=== PATIENT | male | born 1955 | race African-American/Black ===

== ENCOUNTER 2020-08-13 22:25 | Inpatient (IN) | payer BC ==
[2020-08-13 22:32] VITALS: BMI 32.8
[2020-08-14 00:27] LABS: BASO % 0.8 % (0-2.0); EOS % 2.4 % (0-4.5); HEMATOCRIT 46.8 % (35.4-49); HEMOGLOBIN 15.2 GM/dL (11.7-16.9); LYMPH % 14.9 % (8-40); MCH 30.6 pg (25.7-33.7); MCHC 32.6 g/dl (32.0-35.9); MEAN CELL VOLUME 93.9 fl (80-96); MEAN PLT VOLUME 9.7 fl (7.5-11.1); MONO % 11.8 % (3.8-10.2); NEUT % 70.1 % (42.8-82.8); PLATELET COUNT 185 K/MM3 (134-434); RBC 4.98 M/mm3 (4.00-5.60); RDW 14.2 % (11.9-15.9); WHITE BLOOD COUNT 11.6 K/mm3 (4.0-10.0)
[2020-08-14 00:42] LABS: POTASSIUM 4.7 mmol/L (3.5-5.1)
[2020-08-14 00:44] LABS: BLOOD UREA NITROGEN 35.9 mg/dL (7-18); CALCIUM 9.7 mg/dL (8.5-10.1)
[2020-08-14 00:48] LABS: CREATININE 1.2 mg/dL (0.55-1.3)
[2020-08-14 00:49] LABS: BILIRUBIN,TOTAL 0.5 mg/dL (0.2-1); TOT PROT 7.2 g/dl (6.4-8.2)
[2020-08-14 01:17] LABS: ERYTHROCYTE SEDIMENTATION RATE 8 mm/hr (0-20)
[2020-08-14] MEDS ORDERED: IBUPROFEN 600 MG TABLET (FP) PO ONE ×2 (01:33→02:58)
[2020-08-14] MEDS ORDERED: LIDOCAINE HCL 2% (50ML VIAL) INF ONE (02:15)
[2020-08-14] MEDS ORDERED: LIDOCAINE 5% TOPICAL PATCH TP ONE (02:16)
[2020-08-14] MEDS ORDERED: LIDOCAINE HCL 1%, 10 MG/ML (20ML VIAL) ONE (02:26)
[2020-08-14 03:45] LABS: BF WBC & OTHER NUCLEATED CELLS 2653 /mm3
[2020-08-14 04:56] LABS: BODY FLUID MACROPHAGES 46 %; BODY FLUID MESOTHELIAL 13 %
[2020-08-14] MEDS ORDERED: ACETAMINOPHEN 325 MG TABLET (FP) PO PRN (05:52)
[2020-08-14] MEDS: INSULIN SLIDING SCALE (NOVOLOG) 1 VIAL SQ SCH ×3 (06:57→16:20)
[2020-08-14] MEDS ORDERED: amLODIPine BESYLATE 5 MG TABLET (FP) ONE (07:54)
[2020-08-14] MEDS ORDERED: SPIRONOLACTONE 25 MG TABLET ONE ×2 (07:55→11:13)
[2020-08-14] MEDS ORDERED: amLODIPine BESYLATE 5 MG TABLET (FP) PO SCH (10:00)
[2020-08-14] MEDS: SPIRONOLACTONE 25 MG TABLET PO SCH ×2 (10:58→10:59)
[2020-08-14 11:54] LABS: BASO % 0.6 % (0-2.0); EOS % 2.4 % (0-4.5); HEMOGLOBIN 14.6 GM/dL (11.7-16.9); MCH 31.2 pg (25.7-33.7); MCHC 33.3 g/dl (32.0-35.9); MEAN CELL VOLUME 93.5 fl (80-96); MONO % 12.4 % (3.8-10.2); NEUT % 67.6 % (42.8-82.8); PLATELET COUNT 174 K/MM3 (134-434); RDW 14.5 % (11.9-15.9); WHITE BLOOD COUNT 9.3 K/mm3 (4.0-10.0)
[2020-08-14 12:17] LABS: POTASSIUM 4.7 mmol/L (3.5-5.1)
[2020-08-14 12:25] LABS: ALBUMIN 3.8 g/dl (3.4-5.0); CALCIUM 9.4 mg/dL (8.5-10.1)
[2020-08-14 12:29] LABS: CREATININE 1.1 mg/dL (0.55-1.3)
[2020-08-14 12:30] LABS: BILIRUBIN,TOTAL 0.9 mg/dL (0.2-1); TOT PROT 6.9 g/dl (6.4-8.2)
[2020-08-14 15:32] VITALS: BP 119/79; PULSE 73; TEMP 97.4
[2020-08-14] MEDS ORDERED: ATORVASTATIN CA 20 MG TABLET (FP) PO SCH (22:00)
[2020-08-14] MEDS ORDERED: LIDOCAINE PATCH REMOVAL MC SCH (22:00)
== END 2020-08-14 16:00 | disposition home or self-care (01) | DRG 554 ==
LOC: JER 22:25 → JERBED 08-14 04:09
PROVIDERS: ADMIT Hospitalist; ATTEND Internal Medicine
PROC: 0S9C3ZX Drainage of Right Knee Joint, Percutaneous Approach, Diagnostic (ICD-10-PCS; principal; 2020-08-13)
DX: M25.061 Hemarthrosis, right knee (principal); I10 Essential (primary) hypertension; M17.11 Unilateral primary osteoarthritis, right knee; E78.5 Hyperlipidemia, unspecified; E11.9 Type 2 diabetes mellitus without complications; Z85.46 Personal history of malignant neoplasm of prostate
CPT/HCPCS: 36415; 71045-TC-FY; 73562-TC-RT-FY; 73700-TC-RT; 80053; 82962; 85025; 85651; 86140; 87070; 87075; 87205; 89060; 93005; 93010; 99285-25; C9803; U0003